=== PATIENT | male | born 1970 | race Asian ===

== ENCOUNTER 2018-08-21 08:42 | Day surgery (SDC) | payer OTHER ==
[~2018-08-21 08:42] MED LIST: PROPOFOL INJ 200 MG/20 ML VIAL IV ONE
[2018-08-21] MEDS ORDERED: PREDNISONE 20 MG TABLET ONE (09:16)
[2018-08-21] MEDS ORDERED: PREDNISONE 20 MG TABLET PO ONE (09:30)
[2018-08-21 11:37] VITALS: BP 159/91
--- NOTE | 2018-08-21 14:40 | Operative Report ---
Operative Report DATE OF SURGERY: 08/21/18 Operative Report: The risks, benefits and alternatives of the procedure including the risk of bleeding, perforation requiring surgery has been explained to the patient in detail and informed consent has been obtained. Patient is placed in a left, lateral decubital position. Timeout was called. Propofol medication is administered. A rectal examination is done which did not reveal any masses, tears or fissures. An Olympus videoscope was introduced into the patient's rec padmini. The scope was then carefully advanced all the way to the cecum. The cecum was identified by the usual anatomical landmarks including the ileocecal valve as well as the appendiceal office. Photodocumentation is obtained. The scope was then sequentially pulled back via the various segments of the colon including the ascending colon, hepatic flexure, transverse colon, splenic flexure, descending colon and finally into the rectosigmoid portions of the colon. Retroflexion maneuvers performed. PREOPERATIVE DIAGNOSIS: Colorectal cancer screening POSTOPERATIVE DIAGNOSIS: Normal screening colonoscopy OPERATION: Diagnostic colonoscopy SURGEON: CARLEE SONI ANESTHESIA: LMAC TISSUE REMOVED OR ALTERED: None. COMPLICATIONS: None. ESTIMATED BLOOD LOSS: None. INTRAOPERATIVE FINDINGS: As noted above. Internal and external hemorrhoids and need referral to surgery PROCEDURE: Patient tolerated the procedure well. No immediate postprocedure complications are noted. Discharge date 08/21/2018. Discharge diet: Regular. Discharge activity: Regular. 2 to 3-week follow-up to discuss findings. Patient is instructed call the office or proceed to the emergency room should there be any further questions.
== END 2018-08-21 11:25 | disposition home or self-care (01) ==
LOC: END 08:42
PROVIDERS: ATTEND Internal Medicine Gastroenterology
DX: K62.5 Hemorrhage of anus and rectum (principal); K64.8 Other hemorrhoids; K64.4 Residual hemorrhoidal skin tags; I10 Essential (primary) hypertension
CPT/HCPCS: 45378; 00811; J7512; J2704; 811